=== PATIENT | male | born 1930 | race Caucasian/White ===

== ENCOUNTER 2018-10-24 07:21 | Observation (INO) | payer MEDICARE, OTHER ==
[2018-10-18 09:25] VITALS: BP 129/72
[2018-10-18 09:46] LABS: BASOPHILS % (AUTO) 0.8 % (0.0-5.0); EOSINOPHILS % (AUTO) 5.6 % (0.0-8.0); HEMATOCRIT 47.7 % (42-54); LYMPHOCYTES % (AUTO) 25.7 % (21.0-51.0); MEAN CORPUSCULAR HEMOGLOBIN 32.1 pg (27.0-33.0); MEAN CORPUSCULAR HGB CONC 34.3 g/dL (32.0-36.0); MEAN CORPUSCULAR VOLUME 93.6 fL (79-99); MONOCYTES % (AUTO) 10.2 % (3.0-13.0); NEUTROPHILS % (AUTO) 57.7 % (40.0-77.0); NUCLEATED RED BLOOD CELLS 0.1 % (0.0-0.19); PLATELET COUNT (AUTO) 183 K/uL (130-400); RED CELL DISTRIBUTION WIDTH 13.1 % (11.0-15.5); WHITE BLOOD COUNT (AUTO) 6.8 K/uL (4.8-10.8)
[2018-10-18 09:58] LABS: CREATININE 0.8 mg/dL (0.5-1.5); POTASSIUM 4.4 mmol/L (3.5-5.1)
[2018-10-18 09:59] LABS: INR 1.12 (0.85-1.15); PARTIAL THROMBOPLASTIN TIME 29.7 SEC (26.3-35.5); PROTHROMBIN TIME 11.7 SEC (9.6-11.6)
--- NOTE | 2018-10-18 11:09 | NUR ---
[facility] REP: ART NOTIFIED OF PROCEDURE FOR PACEMAKER GENERATOR CHANGE-OUT ON 10/20/2018.
[2018-10-20 07:40] VITALS: BP 123/63
[2018-10-24] VITALS (28 sets, daily range): BP systolic 104–136; BP diastolic 51–82
[~2018-10-24] VITALS: Ht 170.2 cm; Wt 76.7 kg
[~2018-10-24 07:21] MED LIST: ASCO500T9 PO; ASPI-1181 PO; FLAX100020 PO; LATA2.5D2 OU; LEVO25TA54 PO; METO100T14 PO; SIMV40TA5 PO; SODIUM CHLORIDE 0.9% 1000ML 1,000 ML IV SCH; TAMS0.4C32 PO; TIMO5SOL10 OU; VITAMIN A PO
[2018-10-24] MEDS ORDERED: SODIUM CHLORIDE 0.9% 1000ML 1,000 ML IV ONE (07:52)
--- NOTE | 2018-10-24 08:00 | NUR ---
NOTE PT DID NOT WANT HIS COMPRESSION STOCKINGS REMOVED, UNABLE TO ASSESS PEDAL PULSES, OR FOR PEDAL EDEMA.
[2018-10-24] MEDS ORDERED: CEFAZOLIN SODIUM 1 GM VIAL ONE (08:16)
[2018-10-24] MEDS ORDERED: LIDOCAINE HCL 1% MDV 50ML VIAL ONE ×2 (08:16→08:43)
[2018-10-24] MEDS ORDERED: BUPIVACAINE/PF 0.25% 10ML VIAL IJ ONE (08:16)
--- NOTE | 2018-10-24 08:20 | NUR ---
TO FACEPIECE LINE SUPERVISOR PT TAKEN TO CATH VIA BED BY NAWAF JAQUEZ. PT STABLE.
[2018-10-24] MEDS ORDERED: MIDAZOLAM HCL 1 MG/ML 2ML VIAL ONE (09:24)
[2018-10-24] MEDS ORDERED: FENTANYL CITRATE PF 50 MCG/1 ML 2ML VIAL ONE ×2 (09:24→13:13)
[2018-10-24] MEDS ORDERED: ACETAMINOPHEN 325 MG TAB PO PRN ×2 (10:00)
--- NOTE | 2018-10-24 10:10 | NUR ---
RECEIVE PT RECEIVED FROM LEASING CONSULTANT VIA BED, AWAKE ALERT ORIENTED X3. NO COMPLAINTS MADE. HEAD OF BED KEPT ELEVATED, PT MAINTAINED ON SEMI SITTING POSITION. DRESSING TO LEFT UPPER CHEST DRY AND INTACT, SCANT AMOUNT DARK PINK DRAINAGE NOTED. NO ACTIVE BLEEDING NO HEMATOMA NOTED. PT INSTRUCTED NOT TO EXTEND OR RAISE RIGHT ARM ABOVE SHOULDER LEVEL. VERBALIZED UNDERSTANDING. Addendum: 10/24/18 at 1136 by MOHAMUD CREWS RN RN ADDENDUM; ICE PACK APPLIED TO PACEMAKER SITE
--- NOTE | 2018-10-24 10:30 | NUR ---
DIET DR. SUÁREZ HERE AT BEDSIDE TO TALK TO PT AND FRIEND. PER DR. SUÁREZ, PT WIDE AWAKE, SEEM NOT SEDATED ANYMORE, MAY ADVANCE TO REGULAR DIET (GEN HEART HEALTHY) TOLERATED.
--- NOTE | 2018-10-24 13:05 | NUR ---
DR KAMINI SUÁREZ HERE TO CHECK UP ON PT. ORDERED TO GIVE FENTANYL 50 MCG IVP X1 AND APPLY PRESSURE DRESSING AFTER GIVING FENTANYL, CONTINUE TO MONITOR SITE FOR BLEEDING AND NOTIFY HIM.
--- NOTE | 2018-10-24 13:07 | NUR ---
SITE PACEMAKER SITE NOTED TO BE ELEVATED, OOZING NOTED, LANNY BURNETT. APPLIED DIRECT PRESSURE TO SITE. DR. SUÁREZ NOTIFIED, STATED TO CONTINUE APPLY DIRECT PRESSURE. MANUAL PRESSURE APPLIED FOR 30 MINUTES. NO FURTHER OOZING AFTER MANUAL PRESSURE, SITE SOFT. ICE PACK APPLIED. DR. SUÁREZ WILL COME TO SEE PT. Addendum: 10/24/18 at 1432 by MOHAMUD CREWS RN RN ERROR : INCORRECT TIME. CORRECT TIME IS 1207.
[2018-10-24] MEDS ORDERED: FENTANYL CITRATE PF 50 MCG/1 ML 2ML VIAL IVP SCH (13:30)
--- NOTE | 2018-10-24 13:30 | NUR ---
ASSESS PT STATES SITE FEELS A LITTLE BETTER AFTER PAIN MED.
--- NOTE | 2018-10-24 13:40 | NUR ---
ASSESS SITE REMAINS SOFT, NO ACTIVE BLEEDING NOTED. DRESSING MODERATELY SATURATED. WILL CONTINUE TO MONITOR PT. Addendum: 10/24/18 at 1434 by MOHAMUD CREWS RN RN ERROR, INCORRECT TIME. CORRECT TIME 9004
--- NOTE | 2018-10-24 13:45 | NUR ---
PRESSURE DRESSING APPLIED BY LEONID PANTOJA
--- NOTE | 2018-10-24 14:10 | NUR ---
REPORT REPORT GIVEN TO RENE JAQUEZ. PRESSURE DRESSING IN PLACE.
[2018-10-24] MEDS: CEPHALEXIN 250 MG CAPSULE PO SCH ×2 (14:48→21:02)
--- NOTE | 2018-10-24 16:00 | NUR ---
Dr. tejada at bedside, dressing removed, manual pressure held. new orders received. Manual pressure contiued to be applied by sc until 1644, now pressure dressing applied at this time. no swelling noted after manual pressure, some bruising noted around incision site.
[2018-10-24] MEDS ORDERED: FENTANYL CITRATE PF 50 MCG/1 ML 2ML VIAL IVP PRN (16:15)
[2018-10-24] MEDS ORDERED: METOPROLOL TARTRATE 50 MG TAB PO SCH (21:00)
[2018-10-25] VITALS: BP 145/69
[2018-10-25 04:21] VITALS: BP 122/73
[2018-10-25 07:58] VITALS: BP 131/78
[2018-10-25] MEDS: CEPHALEXIN 250 MG CAPSULE PO SCH (08:52)
[2018-10-25] MEDS ORDERED: METOPROLOL TARTRATE 50 MG TAB PO SCH (09:00)
[2018-10-25] MEDS ORDERED: CEPH250C2 PO (11:16)
[2018-10-25 11:31] VITALS: BP 137/79
--- NOTE | 2018-10-25 13:08 | NUR ---
DC PLAN VISITED WITH PATIENT. PATIENT LIVES ALONE. FRIEND TO HELP ON DC. PATIENT HAS NO SERVICES OR DME'S. FEELS SAFE TO RETURN HOME. Addendum: 10/25/18 at 1314 by LAVERNE FROST RN CM Amended: Links added.
--- NOTE | 2018-10-25 13:30 | NUR ---
Patient left at 1330. His friend Jasvir picked him up. Discharge instructions along with follow up appointments were given. Telepack and IV were removed prior to discharge.
== END 2018-10-25 13:55 | disposition home or self-care (01) ==
LOC: DAH 07:21 → DAHIP 07:22 → INTOOBSV 07:22 → 2DH 17:31
PROVIDERS: ADMIT Internal Medicine Cardiovascular Disease; ATTEND Internal Medicine Cardiovascular Disease
DX: I97.621 Postprocedural hematoma of a circulatory system organ or structure following other procedure (principal); I25.10 Atherosclerotic heart disease of native coronary artery without angina pectoris; I10 Essential (primary) hypertension; E78.5 Hyperlipidemia, unspecified; G47.33 Obstructive sleep apnea (adult) (pediatric); R00.1 Bradycardia, unspecified; Y83.9 Surgical procedure, unspecified as the cause of abnormal reaction of the patient, or of later complication, without mention of misadventure at the time of the procedure; Z79.899 Other long term (current) drug therapy; Z95.0 Presence of cardiac pacemaker
CPT/HCPCS: 33228; 36415; 80048; 85025; 85610; 85730; 93005; 96374; A4600; A4606; C1785; G0378 ×31; J0690; J2250; J3010 ×3; J3490 ×3; J7030 ×2; 99156; 99157